=== PATIENT | male | born 1980 | race Caucasian/White ===

== ENCOUNTER → 2017-05-30 | Outpatient (CLI) | payer MEDICAID ==
--- NOTE | 2017-05-30 11:38 | CPEKG ---
Heart Rate: 87 RR Interval: 690 P-R Interval: 148 QRSD Interval: 84 QT Interval: 348 QTC Interval: 419 P Harriet: 9 QRS Harriet: 48 T Wave Harriet: 26 EKG Severity - NORMAL ECG - EKG Impression: SINUS RHYTHM Electronically Signed By: Nico Bar 31-May-2017 23:06:44
== END ==
LOC: FCP 11:16
PROVIDERS: ATTEND Psychiatry & Neurology Psychiatry
DX: Z51.81 Encounter for therapeutic drug level monitoring (principal); Z79.899 Other long term (current) drug therapy

== ENCOUNTER → 2017-07-31 | Outpatient (CLI) | payer MEDICAID ==
--- NOTE | 2017-07-31 14:09 | CPEKG ---
Heart Rate: 93 RR Interval: 645 P-R Interval: 140 QRSD Interval: 82 QT Interval: 344 QTC Interval: 428 P [place]: 18 QRS [place]: 56 T Wave [place]: 26 EKG Severity - NORMAL ECG - EKG Impression: SINUS RHYTHM Electronically Signed By: Josiah Potter 01-Aug-2017 15:53:38
== END ==
LOC: FCP 02:30
PROVIDERS: ATTEND Psychiatry & Neurology Psychiatry
DX: Z13.6 Encounter for screening for cardiovascular disorders (principal); Z79.899 Other long term (current) drug therapy

== ENCOUNTER → 2018-09-12 | Outpatient (CLI) | payer MEDICAID | LOC: FIMAGING 14:58 | PROVIDERS: ATTEND Psychiatry & Neurology Psychiatry | DX: G25.69 Other tics of organic origin (principal); G31.9 Degenerative disease of nervous system, unspecified | CPT/HCPCS: 70551-PN ==